=== PATIENT | female | born 1985 | race Caucasian/White ===

== ENCOUNTER 2023-06-09 09:17 | Emergency (ER) | payer SELFPAY ==
[~2023-06-09] VITALS: Ht 170 cm; Wt 91.0 kg
--- NOTE | 2023-06-09 10:03 | ED General ---
General Chief Complaint: Chest Wall Stated Complaint: LEFT RIBS Nursing Triage Note: PT AMB TO RM 5 PT CO OF L SIDE RIB PAIN STATES WAS HORSE PLAYING ABOUT 5 DAYS AGO AND HURT L SIDE RIBS STATES FELT POP, THEN LAST NIGHT STRETCHED AND FELT L RIBS POP AGAIN, HAS SL SOB. RATES PAIN 8/10 AT THIS X. Source of Information: Patient Exam Limitations: No Limitations (LISA BANKS) History of Present Illness Date Seen by Provider: Jun 09, 2023 Time Seen by Provider: 09:48 Initial Comments 37yo F with PMH GERD, depression, chronic LE edema, chronic back pain, and anxiety presents to the ED via personal vehicle with c/o L rib pain that started 4-5 days ago and worsened last night. Pain is rated a 8/10 and is constant, sharp, and worse with movement and deep breathing. Pt states that 4-5 days ago, she injured her L side while wrestling with her 15yo son. She states that they fell onto the bed on her left side and his elbow went into her ribs, at which time she heard a pop and immediately experienced sharp pain. Pt states that pain started improve over the next couple days with alternating tylenol and ibuprofen but last night, the pain returned. Pt states that she went to stretch her trunk by twisting when she again experienced a pop and immediate pain. This time, pt states that pain medication gave no relief, prompting her to come to the ED for further evaluation. Pt states that her last dose of ibuprofen and tylenol was last night and she had been alternating every 6 hours between a 1000mg of tylenol and 800mg of ibuprofen. Pt denies any bruising, nausea, vomiting, CP, new back pain, CP, abd pain, h/o pancreatitis, and radiation of pain. Timing/Duration: 4-5 Days Severity: Mild Modifying Factors: improves with Medication (initially improved now, no relief), improves with Movement (worse) Associated Systoms: No Chest Pain, No Cough, No Fever/Chills, No Nausea/Vomiting; Shortness of Air (secondary to not being able to deep breath due to pain) (LISA BANKS) Allergies and Home Medications Allergies Coded Allergies: Bleach (Sodium Hypochlorite) (Verified Allergy, Unknown, 06/09/23) morphine (Verified Allergy, Unknown, 06/09/23) Patient Home Medication List Home Medication List Reviewed: Yes (LISA BANKS) Home Medication List Reviewed: Yes (SARAH PENNINGTON MD) Review of Systems Review of Systems Constitutional: no symptoms reported EENTM: no symptoms reported Respiratory: No cough; short of breath (secondary to pain) Cardiovascular: no symptoms reported Gastrointestinal: no symptoms reported Genitourinary: no symptoms reported Musculoskeletal: other (L rib pain) Skin: no symptoms reported Psychiatric/Neurological: No Symptoms Reported Hematologic/Lymphatic: No Symptoms Reported Immunological/Allergic: no symptoms reported (LISA BANKS) All Other Systems Reviewed Negative Unless Noted: Yes (LISA BANKS) Past Ksibznq-Xcnywt-Anmcpd Hx Patient Social History Tobacco Use?: Yes Tobacco type used: Cigarettes Smoking Status: Current Everyday Smoker Substance use?: Yes Substance type: Marijuana Substance frequency: Once in a while Alcohol Use?: No Pt feels they are or have been: No (LISA BANKS) Past Medical History Surgery/Hospitalization HX: TUBAL, GB. GERD, CHRONIC LE EDEMA, Surgeries: Yes Gallbladder, Tubal Ligation Respiratory: No Cardiac: Yes Chronic Edema/Swelling Neurological: No Last Menstrual Period: May 03, 2023 Reproductive Disorders: No Genitourinary: No Gastrointestinal: Yes Gastroesophageal Reflux, Esophagitis, Gall Bladder Disease Musculoskeletal: Yes Chronic Back Pain Endocrine: No HEENT: No Cancer: No Psychosocial: Yes Anxiety, Depression Integumentary: No (LISA BANKS) Family Medical History No Pertinent Family Hx (LISA BANKS) Physical Exam Vital Signs Vital Signs - First Documented 06/09/23 09:25 Temp 36.9 Pulse 93 Resp 18 B/P (MAP) 122/90 (101) Pulse Ox 99 (SARAH PENNINGTON MD) Vital Signs Capillary Refill : Less Than 3 Seconds (LISA BANKS) Height, Weight, BMI Height: '" Weight: lbs. oz. kg; 31.00 BMI Method: General Appearance: No Apparent Distress, WD/WN HEENT: PERRL/EOMI Neck: Non Tender, Supple Respiratory: Lungs Clear, Normal Breath Sounds, No Accessory Muscle Use, No Respiratory Distress Cardiovascular: Regular Rate, Rhythm, Normal Peripheral Pulses Gastrointestinal: Normal Bowel Sounds, Non Tender, Soft Back: No CVA Tenderness, No Vertebral Tenderness, Other (Point tenderness over L ribs 7-9 on midclavicular line) Extremity: Non Tender, No Calf Tenderness Neurologic/Psychiatric: Alert, Oriented x3, No Motor/Sensory Deficits, Normal Mood/Affect Skin: Normal Color, Warm/Dry Lymphatic: No Adenopathy (LISA BANKS) Progress/Results/Core Measures Suspected Sepsis SIRS Temperature: Pulse: 93 Respiratory Rate: 18 Blood Pressure 122 /90 Mean: 101 (LISA BANKS) Results/Orders Vital Signs/I&O 06/09/23 09:25 Temp 36.9 Pulse 93 Resp 18 B/P (MAP) 122/90 (101) Pulse Ox 99 (SARAH PENNINGTON MD) Vital Signs/I&O Capillary Refill : Less Than 3 Seconds (LISA BANKS) Blood Pressure Mean: 101 Progress Note : Time: 10:18 Progress Note Patient seen and evaluated by me. I have reviewed and agree with the medical student's documentation. Eval today includes physical exam. Pertinent physical exam findings include - WDWN female in NAD. SHe has intact, equal bilateral BS. Tenderness to palpation over the 8th/90th rib anteriorly. no crepitance to the chest wall. No bruising. No swelling appreciated. She has pleuritic pain with deep inspiration. Ddx based on h&p exam - rib fracture v rib contusion Patient will be treated with NSAIDs and given hydrocodone 5mg tablets #8. Advised Aleve. Encouraged smoking cessation. Return precautions provided in both verbal and written format. (SARAH PENNINGTON MD) Counseling-Symptomatic: 3-10 Minutes Follow-up with PCP to: Discuss Further Options (SARAH PENNINGTON MD) Departure Impression Primary Impression: Rib injury Disposition: 01 HOME, SELF-CARE Condition: Stable Departure-Patient Inst. Decision time for Depature: 10:21 (SARAH PENNINGTON MD) Referrals: VINCENZO HINKLE DO (PCP) Primary Care Physician Patient Instructions: Bruised Rib (DC) Add. Discharge Instructions: You can try over the counter lidocaine patches to the area of pain, this in addition to over the counter Aleve 500mg twice a day with food will help with discomfort. I have prescribed you hydrocodone 5mg tablets - you can take one with 1 extra strength tylenol every 6 hours for pain as well. Try and remember to take deep breaths often to help prevent bronchitis/pneumonia from developing. If you develop shortness of breath, fever, blood in your sputum, please return to the Emergency Department for re-evaluation. Scripts Hydrocodone/Acetaminophen (Hydrocodone-Acetamin 5-325 mg) 5 Mg-325 Mg Tablet 1 TAB PO Q6H PRN for PAIN-MODERATE (5-7), #8 TAB Prov: SARAH PENNINGTON MD 06/09/23 Work/School Note: Work Release Form Date Seen in the Emergency Department: Jun 09, 2023 Return to Work: Jun 12, 2023 Other Restrictions Listed Below: No heavy lifting x 1 week (>15lb) Verification and Attestation of Medical Student E/M Service A medical student performed and documented this service in my presence. I reviewed and verified all information documented by the medical student and made modifications to such information, when appropriate. I personally performed the physical exam and medical decision making. Sarah Pennington, Jun 09, 2023,10:29 (SARAH PENNINGTON MD) Copy Copies To 1: VINCENZO HINKLE TAYLOR Jun 09, 2023 10:03 SARAH PENNINGTON MD Jun 09, 2023 10:24
[2023-06-09] MEDS ORDERED: ACHD5005 PO (10:24)
[2023-06-09 10:33] VITALS: BP 122/90
== END 2023-06-09 10:33 | disposition home or self-care (01) ==
LOC: ER 09:22
DX: S29.9XXA Unspecified injury of thorax, initial encounter (principal); F17.210 Nicotine dependence, cigarettes, uncomplicated; X50.1XXA Overexertion from prolonged static or awkward postures, initial encounter; Y93.83 Activity, rough housing and horseplay
CPT/HCPCS: 99285

== ENCOUNTER 2023-07-10 14:02 | Emergency (ER) | payer OTHER ==
[~2023-07-10 14:02] MED LIST: ACHD5005 PO
--- NOTE | 2023-07-10 14:26 | ED Abdominal Pain ---
General Chief Complaint: Abdominal/GI Problems Stated Complaint: LOWER RT ABD PAIN Nursing Triage Note: PT CO OF R LOWER ABD PAIN THAT STARTED LAST PM THAT HAS GOTTEN WORSE TODAY. RATES PAIN /10. PT STATES HAS HAD DIARRHEA FOR PAST 3 DAYS. Source of Information: Patient Exam Limitations: No Limitations History of Present Illness Date Seen by Provider: Jul 10, 2023 Time Seen by Provider: 14:06 Initial Comments 37-year-old female presents to the ER with complaint of right lower quadrant abdominal pain. She states it started out as a dull pain last night, woke up this morning the pain was worse. States that it has continued to get worse throughout the day. She reports 3 days of diarrhea, reports 2-3 episodes a day. States that she has chronic diarrhea, but it had cleared up for a month or 2 and then returned 3 days ago. She denies fevers, nausea, vomiting, vaginal bleeding, vaginal discharge, dysuria. Last menstrual cycle was the middle of last month. She has had her gallbladder removed. No other abdominal surgeries. Allergies and Home Medications Allergies Coded Allergies: Bleach (Sodium Hypochlorite) (Verified Allergy, Unknown, 06/09/23) morphine (Verified Allergy, Unknown, 06/09/23) Patient Home Medication List Home Medication List Reviewed: Yes Ciprofloxacin HCl (Ciprofloxacin HCl) 500 Mg Tablet, 500 MG PO BID Prescribed by: Maile Trujillo on 07/10/23 1604 Hydrocodone/Acetaminophen (Hydrocodone-Acetamin 5-325 mg) 5 Mg-325 Mg Tablet, 1 TAB PO Q6H PRN for PAIN-MODERATE (5-7) Prescribed by: SARAH CANALES on 06/09/23 1025 Hydrocodone/Acetaminophen (Hydrocodone-Acetamin 5-325 mg) 5 Mg-325 Mg Tablet, 1 TAB PO Q4H PRN for PAIN-MODERATE (5-7) Prescribed by: Maile Trujillo on 07/10/23 1604 Metronidazole (Metronidazole) 500 Mg Tablet, 500 MG PO Q8H Prescribed by: Maile Trujillo on 07/10/23 1604 Review of Systems Review of Systems Constitutional: see HPI Past Frsafgf-Wgzyci-Hkawyo Hx Patient Social History Tobacco Use?: Yes Tobacco type used: Cigarettes Smoking Status: Current Everyday Smoker Substance use?: Yes Substance type: Marijuana Substance frequency: Couple times a week Alcohol Use?: No Pt feels they are or have been: No Past Medical History Surgery/Hospitalization HX: TUBAL, GB. GERD, CHRONIC LE EDEMA, Surgeries: Yes Gallbladder, Tubal Ligation Respiratory: No Cardiac: Yes Chronic Edema/Swelling Neurological: No Last Menstrual Period: Jun 08, 2023 Reproductive Disorders: No Genitourinary: No Gastrointestinal: Yes Gastroesophageal Reflux, Esophagitis, Gall Bladder Disease Musculoskeletal: Yes Chronic Back Pain Endocrine: No HEENT: No Cancer: No Psychosocial: Yes Anxiety, Depression Integumentary: No Family Medical History No Pertinent Family Hx Physical Exam Vital Signs Vital Signs - First Documented 07/10/23 14:10 Temp 37.5 Pulse 109 Resp 18 B/P (MAP) 150/103 (119) Pulse Ox 98 Capillary Refill : Less Than 3 Seconds Height/Weight/BMI Height: '" Weight: lbs. oz. kg; 31.00 BMI Method: General Appearance: WD/WN, mild distress Neck: supple, normal inspection Respiratory: lungs clear, normal breath sounds, no respiratory distress, no accessory muscle use Cardiovascular: regular rate, rhythm Gastrointestinal: normal bowel sounds, soft; No guarding, No rebound; tenderness (Right lower quadrant) Extremities: normal range of motion, normal inspection Neurologic/Psychiatric: alert, normal mood/affect Skin: normal color, warm/dry Progress/Results/Core Measures Results/Orders Lab Results Laboratory Tests Test 07/10/23 14:10 07/10/23 14:25 Range/Units White Blood Count 11.4 H 4.3-11.0 10^3/uL Red Blood Count 4.35 3.80-5.11 10^6/uL Hemoglobin 12.9 11.5-16.0 g/dL Hematocrit 40 35-52 % Mean Corpuscular Volume 91 80-99 fL Mean Corpuscular Hemoglobin 30 25-34 pg Mean Corpuscular Hemoglobin Concent 33 32-36 g/dL Red Cell Distribution Width 13.4 10.0-14.5 % Platelet Count 293 130-400 10^3/uL Mean Platelet Volume 10.2 9.0-12.2 fL Immature Granulocyte % (Auto) 0 % Neutrophils (%) (Auto) 69 42-75 % Lymphocytes (%) (Auto) 23 12-44 % Monocytes (%) (Auto) 6 0-12 % Eosinophils (%) (Auto) 2 0-10 % Basophils (%) (Auto) 1 0-10 % Neutrophils # (Auto) 7.8 1.8-7.8 10^3/uL Lymphocytes # (Auto) 2.6 1.0-4.0 10^3/uL Monocytes # (Auto) 0.7 0.0-1.0 10^3/uL Eosinophils # (Auto) 0.2 0.0-0.3 10^3/uL Basophils # (Auto) 0.1 0.0-0.1 10^3/uL Immature Granulocyte # (Auto) 0.0 0.0-0.1 10^3/uL Sodium Level 138 135-145 MMOL/L Potassium Level 3.6 3.6-5.0 MMOL/L Chloride Level 111 H 98-107 MMOL/L Carbon Dioxide Level 20 L 21-32 MMOL/L Anion Gap 7 5-14 MMOL/L Blood Urea Nitrogen 8 7-18 MG/DL Creatinine 0.90 0.60-1.30 MG/DL Estimat Glomerular Filtration Rate 84 BUN/Creatinine Ratio 9 Glucose Level 112 H 70-105 MG/DL Calcium Level 9.2 8.5-10.1 MG/DL Corrected Calcium 9.2 8.5-10.1 MG/DL Total Bilirubin 0.3 0.1-1.0 MG/DL Aspartate Amino Transf (AST/SGOT) 14 5-34 U/L Alanine Aminotransferase (ALT/SGPT) 18 0-55 U/L Alkaline Phosphatase 65 40-136 U/L C-Reactive Protein High Sensitivity 2.10 H 0.00-0.50 MG/DL Total Protein 7.4 6.4-8.2 GM/DL Albumin 4.0 3.2-4.5 GM/DL Lipase 20 8-78 U/L Urine Color YELLOW Urine Clarity CLEAR Urine pH 6.0 5-9 Urine Specific [place] 1.025 H 1.016-1.022 Urine Protein NEGATIVE NEGATIVE Urine Glucose (UA) NEGATIVE NEGATIVE Urine Ketones TRACE H NEGATIVE Urine Nitrite NEGATIVE NEGATIVE Urine Bilirubin NEGATIVE NEGATIVE Urine Urobilinogen 0.2 < = 1.0 MG/DL Urine Leukocyte Esterase NEGATIVE NEGATIVE Urine RBC (Auto) 1+ H NEGATIVE Urine RBC 2-5 H /HPF Urine WBC NONE /HPF Urine Squamous Epithelial Cells >50 H /HPF Urine Crystals PRESENT H /LPF Urine Amorphous Sediment FEW KEERTHI URATES H /LPF Urine Bacteria TRACE /HPF Urine Casts PRESENT /LPF Urine Hyaline Casts 2-5 H /LPF Urine Mucus LARGE H /LPF Urine Culture Indicated NO My Orders Orders - MAILE BULLARD APRN Ua Culture If Indicated (07/10/23 14:06) Urine Bedside (07/10/23 14:06) Comprehensive Metabolic Panel (07/10/23 14:22) Lipase (07/10/23 14:22) Ed Iv/Invasive Line Start (07/10/23 14:22) Cbc And Automated Diff (07/10/23 14:22) Hs C Reactive Protein (07/10/23 14:22) Ed Iv/Invasive Line Start (07/10/23 14:23) Ed Iv/Invasive Line Start (07/10/23:23) Fentanyl Injection (Fentanyl Injection (07/10/23 14:30) Ct Abdomen/Pelvis W (07/10/23 14:54) Iohexol Injection (Omnipaque 350 Mg/Ml 1 (07/10/23 15:00) Received Contrast (Hold Metformin- Contr (07/10/23 15:00) Ns (Ivpb) 100 Ml (Sodium Chloride 0.9% 1 (07/10/23 15:00) Medications Given in ED Current Medications Medications Dose Ordered Sig/Brunilda Route Start Time Stop Time Status Last Admin Dose Admin Fentanyl Citrate 50 mcg ONCE ONCE IVP 07/10/23 14:30 07/10/23 14:31 DC 07/10/23 14:29 50 MCG Iohexol 100 ml ONCE ONCE IV 07/10/23 15:00 07/10/23 15:01 DC 07/10/23 15:11 80 ML Sodium Chloride 100 ml ONCE ONCE IV 07/10/23 15:00 07/10/23 15:01 DC 07/10/23 15:11 80 ML Vital Signs/I&O 07/10/23 14:10 Temp 37.5 Pulse 109 Resp 18 B/P (MAP) 150/103 (119) Pulse Ox 98 Blood Pressure Mean: 119 Progress Progress Note : Progress Note Patient seen and evaluated, resting in bed, mild distress. Based on exam and symptoms, differential diagnosis includes was not limited to appendicitis, nephrolithiasis, pyelonephritis, UTI, ovarian cyst. Work-up initiated including CBC, CMP, lipase, UA, urine . IV fluids and fentanyl ordered. 1507 Labs reviewed. CBC shows slightly elevated WBC 11.4 otherwise grossly normal. CMP shows elevated chloride 111, decreased CO2 20. Lipase normal. CRP 2.10. Urinalysis shows elevated urine specific gravity 1.025, trace ketones, 1+ RBCs, negative for leukocytes and WBCs, trace bacteria, greater than 50 squamous epithelial cells. Specimen is likely contaminated. 1553 CT reviewed. It shows extensive diverticulosis throughout the entire colon, there is superimposed acute diverticulitis of a single diverticulum of the cecum which would explain patient's right lower quadrant pain. The diverticulum is filled with hyperdense material involving the cecum with surrounding inflammation which is indicative of acute diverticulitis. No abscess, perforation, or fistula. Normal appendix. I spoke with Dr. Clayton, surgery, regarding CT findings. He would like me to treat patient's diverticulitis with Flagyl and Cipro. He also wants patient to be on a clear liquid diet for the next 3 days. He would like to see her in 1 to 2 weeks in his office. Results and plan of care discussed with patient. Patient verbalized understanding. All questions sought and answered. Patient is stable for discharge. Discharge instructions and return precautions provided. Diagnostic Imaging Diagonstic Imaging: CT Plain Films/CT/US/NM/MRI: abdomen, pelvis Comments [facility], [place] NAME: JEANNINE CEVALLOS [facility] REC#: [id number] PT STATUS: REG ER : 1985 PHYSICIAN: MAILE BULLARD APRN ADMIT DATE: 07/10/23/ER Signed Date of Exam:07/10/23 CT ABDOMEN/PELVIS W CT ABDOMEN/PELVIS W TECHNIQUE: Multiple contiguous axial images were obtained through the abdomen and pelvis after administration of intravenous contrast. All CT scans use one or more of the following dose optimizing techniques: automated exposure control, MA and/or KvP adjustment based on patient size and exam type or iterative reconstruction. INDICATION: Right lower quadrant pain. COMPARISON: None available. FINDINGS: Lower chest: The lung bases are clear. No pericardial or pleural effusion. Peritoneum: No free intraperitoneal air or fluid. Liver and biliary system: The liver is normal. Cholecystectomy. No biliary duct dilatation. Spleen and Pancreas: Spleen is normal. The pancreas enhances normally without mass lesion or peripancreatic inflammatory changes. Adrenals: Normal. tract: The kidneys enhance normally without suspicious mass or obstruction. Urinary bladder is distended without wall thickening. Uterus and ovaries are normal in appearance. GI tract: Stomach is filled with fluid and food debris. No bowel obstruction. Chronic moderate wall thickening throughout the ascending and portions of the transverse colon is characterized by fatty proliferation of the submucosa. Diverticulosis is present throughout the entire colon. There is a diverticulum filled with hyperdense material involving the cecum with surrounding inflammation that is indicative of acute diverticulitis. Appendix is normal. Vasculature and Lymph nodes: Normal caliber aorta. No abdominal or pelvic lymphadenopathy. Musculoskeletal: No concerning osseous lesion. IMPRESSION: 1. Extensive diverticulosis throughout the entire colon. There is superimposed acute diverticulitis of a single diverticulum of the cecum which would account for patient's acute right lower quadrant pain. 2. No abscess, perforation, or fistula. 3. Normal appendix. Dictated by: Dictated on workstation # [id number] Dict: 07/10/23 1537 Trans: 07/10/23 1559 [id number] Interpreted by: MYRIAM VELA MD Electronically signed by: MYRIAM VELA MD 07/10/23 1559 Departure Impression Primary Impression: Diverticulitis of intestine Disposition: 01 HOME, SELF-CARE Condition: Stable Departure-Patient Inst. Decision time for Depature: 16:00 Referrals: JOHN CLAYTON CASEY V DO (PCP/Family) Primary Care Physician Patient Instructions: Clear Liquid Diet, Diverticulitis Add. Discharge Instructions: Follow a clear liquid diet for the next 3 days. Complete full course of both antibiotics as prescribed. Take [place] as needed for pain. It can cause constipation, it can also make you sleepy. Follow-up with Dr. Clayton. Call his office today or tomorrow to schedule a follow-up appointment in 1 to 2 weeks. Return for severe abdominal pain, recurrent vomiting, or any other new, concerning, worsening symptoms. All discharge instructions reviewed with patient and/or family. Voiced underst anding. Scripts Hydrocodone/Acetaminophen (Hydrocodone-Acetamin 5-325 mg) 5 Mg-325 Mg Tablet 1 TAB PO Q4H PRN for PAIN-MODERATE (5-7), #12 TAB 0 Refills Prov: JUAN MIGUEL,MAILE R [employer]ADER 07/10/23 Metronidazole (Metronidazole) 500 Mg Tablet 500 MG PO Q8H for 10 Days, #30 TAB 0 Refills Prov: MAILE BULLARD APRN 07/10/23 Ciprofloxacin HCl (Ciprofloxacin HCl) 500 Mg Tablet 500 MG PO BID for 10 Days, #20 TAB 0 Refills Prov: MAILE BULLARD APRN 07/10/23 Copy Copies To 1: VINCENZO HINKLE BRITTANY R APRN Jul 10, 2023 14:26
[2023-07-10 14:27] LABS: BASOPHILS # (AUTO) 0.1 10^3/uL (0.0-0.1); BASOPHILS % (AUTO) 1 % (0-10); EOSINOPHILS # (AUTO) 0.2 10^3/uL (0.0-0.3); EOSINOPHILS % (AUTO) 2 % (0-10); HEMATOCRIT 40 % (35-52); HEMOGLOBIN 12.9 g/dL (11.5-16.0); LYMPHOCYTES # (AUTO) 2.6 10^3/uL (1.0-4.0); LYMPHOCYTES % (AUTO) 23 % (12-44); MEAN CORPUSCULAR HEMOGLOBIN 30 pg (25-34); MEAN CORPUSCULAR HGB CONC 33 g/dL (32-36); MEAN CORPUSCULAR VOLUME 91 fL (80-99); MEAN PLATELET VOLUME 10.2 fL (9.0-12.2); MONOCYTES # (AUTO) 0.7 10^3/uL (0.0-1.0); MONOCYTES % (AUTO) 6 % (0-12); NEUTROPHILS # (AUTO) 7.8 10^3/uL (1.8-7.8); NEUTROPHILS % (AUTO) 69 % (42-75); PLATELET COUNT 293 10^3/uL (130-400); WHITE BLOOD COUNT 11.4 10^3/uL (4.3-11.0)
[2023-07-10] MEDS ORDERED: fentaNYL INJECTION 100 MCG/2 ML VIAL IVP ONE (14:30)
[2023-07-10 14:32] LABS: POTASSIUM 3.6 MMOL/L (3.6-5.0)
[2023-07-10 14:33] LABS: CALCIUM 9.2 MG/DL (8.5-10.1)
[2023-07-10 14:35] LABS: TOTAL PROTEIN 7.4 GM/DL (6.4-8.2)
[2023-07-10 14:36] LABS: BILIRUBIN,TOTAL 0.3 MG/DL (0.1-1.0)
[2023-07-10 14:39] LABS: CREATININE SERUM 0.9 MG/DL (0.60-1.30)
[2023-07-10 14:46] LABS: AMORPHOUS SEDIMENT,UR FEW AMOR URATES /LPF; BACTERIA,URINE TRACE /HPF; BILIRUBIN,URINE NEGATIVE (NEGATIVE); CLARITY,URINE CLEAR; COLOR,URINE YELLOW; GLUCOSE, URINE (UA) NEGATIVE (NEGATIVE); KETONES,URINE TRACE (NEGATIVE); LEUKOCYTE ESTERASE ,URINE NEGATIVE (NEGATIVE); NITRITE,URINE NEGATIVE (NEGATIVE); PROTEIN,URINE NEGATIVE (NEGATIVE); SQUAMOUS EPITHELIAL CELL,UR >50 /HPF
[2023-07-10] MEDS ORDERED: IOHEXOL 350 MG/ML 100 ML (OMNIPAQUE 350) VIAL IV ONE (15:00)
[2023-07-10] MEDS ORDERED: HOLD METFORMIN - RECEIVED CONTRAST 20 ML VIAL IV SCH (15:00)
[2023-07-10] MEDS ORDERED: NS 100 ML (IVPB) BAG IV ONE (15:00)
--- NOTE | 2023-07-10 15:43 | Diagnostic Imaging Report ---
CT ABDOMEN/PELVIS W TECHNIQUE: Multiple contiguous axial images were obtained through the abdomen and pelvis after administration of intravenous contrast. All CT scans use one or more of the following dose optimizing techniques: automated exposure control, MA and/or KvP adjustment based on patient size and exam type or iterative reconstruction. INDICATION: Right lower quadrant pain. COMPARISON: None available. FINDINGS: Lower chest: The lung bases are clear. No pericardial or pleural effusion. Peritoneum: No free intraperitoneal air or fluid. Liver and biliary system: The liver is normal. Cholecystectomy. No biliary duct dilatation. Spleen and Pancreas: Spleen is normal. The pancreas enhances normally without mass lesion or peripancreatic inflammatory changes. Adrenals: Normal. tract: The kidneys enhance normally without suspicious mass or obstruction. Urinary bladder is distended without wall thickening. Uterus and ovaries are normal in appearance. GI tract: Stomach is filled with fluid and food debris. No bowel obstruction. Chronic moderate wall thickening throughout the ascending and portions of the transverse colon is characterized by fatty proliferation of the submucosa. Diverticulosis is present throughout the entire colon. There is a diverticulum filled with hyperdense material involving the cecum with surrounding inflammation that is indicative of acute diverticulitis. Appendix is normal. Vasculature and Lymph nodes: Normal caliber aorta. No abdominal or pelvic lymphadenopathy. Musculoskeletal: No concerning osseous lesion. IMPRESSION: 1. Extensive diverticulosis throughout the entire colon. There is superimposed acute diverticulitis of a single diverticulum of the cecum which would account for patient's acute right lower quadrant pain. 2. No abscess, perforation, or fistula. 3. Normal appendix. Dictated by: Dictated on workstation # [id number]
[2023-07-10] MEDS ORDERED: METR-145 PO (16:04)
[2023-07-10] MEDS ORDERED: ACHD5005 PO (16:04)
[2023-07-10] MEDS ORDERED: CIPR500T5 PO (16:04)
[2023-07-10 16:16] VITALS: BP 142/88
== END 2023-07-10 16:16 | disposition home or self-care (01) ==
LOC: EDUNIT# 14:02 → ER 14:04
DX: K57.92 Diverticulitis of intestine, part unspecified, without perforation or abscess without bleeding (principal); F17.210 Nicotine dependence, cigarettes, uncomplicated; Z90.49 Acquired absence of other specified parts of digestive tract
CPT/HCPCS: 36415; 74177; 80053; 81000; 83690; 84703; 85025; 86141; 96374